=== PATIENT | female | born 1955 | race Caucasian/White ===

== ENCOUNTER 2022-05-20 16:33 | Emergency (ER) | payer OTHER, BC ==
[2022-05-20 16:57] VITALS: BP 133/59; PULSE 65; RESP 18; TEMP 97.8; BMI 26.5
[2022-05-20] MEDS ORDERED: LIDOCAINE 5% TOPICAL PATCH TP ONE (17:01)
[2022-05-20] MEDS ORDERED: ACETAMINOPHEN 500 MG TABLET (FP) PO ONE (17:01)
[2022-05-20] MEDS ORDERED: KETOROLAC TROMETHAMINE 30 MG/1 ML VIAL IM ONE (17:01)
[2022-05-20] MEDS ORDERED: KETOROLAC TROMETHAMINE 30 MG/1 ML VIAL ONE (18:08)
[2022-05-20] MEDS ORDERED: LIDOCAINE 5% TOPICAL PATCH ONE (18:09)
[2022-05-20] MEDS ORDERED: ACETAMINOPHEN 325 MG TABLET (FP) ONE (18:09)
[2022-05-20] MEDS ORDERED: LIDOCAINE PATCH REMOVAL MC SCH (22:00)
== END 2022-05-20 19:40 | disposition home or self-care (01) ==
LOC: FER 16:33
PROC: 3E0233Z Introduction of Anti-inflammatory into Muscle, Percutaneous Approach (ICD-10-PCS; principal; 2022-05-20)
DX: S80.02XA Contusion of left knee, initial encounter (principal); W10.9XXA Fall (on) (from) unspecified stairs and steps, initial encounter; Y92.9 Unspecified place or not applicable
CPT/HCPCS: 71046-TC-FY; 71101-TC-LT-FY; 73560-TC-LT-FY; 73560-TC-RT-FY; 99284-25